=== PATIENT | male | born 1950 | race Caucasian/White ===

== ENCOUNTER 2018-06-10 00:16 | Inpatient (IN) ==
--- NOTE | 2018-06-10 01:01 | XR ---
EXAM DATE: 06/10/2018 12:49 AM EST AGE/SEX: 68 years / Male INDICATIONS: Shortness of breath. CLINICAL DATA: This is the patient's initial encounter. Patient reports that signs and symptoms have been present for 1 day and indicates a pain score of 0/10. MEDICAL/SURGICAL HISTORY: Carcinoma, prostatic. Hypertension. Laryngeal cancer. . Laryngectom y. Port placement. COMPARISON: No prior exams available for comparison. FINDINGS: A single AP view of the chest demonstrates the lungs to be symmetrically aerated without evidence of mass, infiltrate or effusion. The pulmonary nodules seen on the prior PET CT are not discernible on this study. The cardiomediastinal contours are unremarkable. Osseous structures are intact. Right- sided PowerPort. CONCLUSION: Negative examination. Electronically signed by: Greg Carroll MD 06/10/2018 1:00 AM EST
[2018-06-10 01:20] LABS: Eos # (Auto) 0.2 th/mm3 (0.0-0.4); Eos % (Auto) 3.6 % (0.0-4.0); Hematocrit 45.6 % (39.0-51.0); Hemoglobin 15.3 gm/dL (13.0-17.0); Lymph # (Auto) 1.4 th/mm3 (1.0-4.8); Lymph % (Auto) 29.7 % (9.0-44.0); Mean Corpuscular HGB Conc 33.7 % (32.0-36.0); Mean Corpuscular Hemoglobin 36.6 pg (27.0-34.0); Mean Corpuscular Volume 108.8 fL (80.0-100.0); Mean Platelet Volume 7.8 fL (7.0-11.0); Mono # (Auto) 0.6 th/mm3 (0.0-0.9); Neut # (Auto) 2.5 th/mm3 (1.8-7.7); Neut % (Auto) 52.7 % (16.0-70.0); Platelet Count 182 th/mm3 (150-450); Red Blood Count 4.19 mil/mm3 (4.50-5.90); Red Cell Distribution Width 13.6 % (11.6-17.2); White Blood Count 4.7 th/mm3 (4.0-11.0)
[2018-06-10 01:42] LABS: Alanine Aminotransferase 41 U/L (12-78); Albumin 3.7 g/dL (3.4-5.0); Anion Gap 13 meq/L (5-15); Aspartate Aminotransferase 42 U/L (15-37); Blood Urea Nitrogen 12 mg/dL (7-18); Calcium 8.2 mg/dL (8.5-10.1); Chloride 111 meq/L (98-107); Glomerular Filtration Rate 80 mL/min (>89); Glucose,Random 96 mg/dL (74-106); Magnesium 1.8 mg/dL (1.5-2.5); Potassium 3.7 meq/L (3.5-5.1); Sodium 143 meq/L (136-145)
[2018-06-10 01:51] LABS: Alkaline Phosphatase 130 U/L (45-117); Total Protein 7.7 g/dL (6.4-8.2)
[2018-06-10 01:57] LABS: Alcohol 141 mg/dL (0-5)
[2018-06-10 02:09] LABS: ABG Base Excess -3.9 mmol/L (-2-2); ABG PCO2 30 mmHg (38-42); ABG PO2 79 mmHg (61-120)
[2018-06-10] MEDS ORDERED: Sodium Chlor 0.9% Inj 500 ML IV.SIG ONE ×2 (02:10→04:30)
[2018-06-10 03:00] LABS: Bilirubin,Urine Negative (Negative); Clarity,Urine Clear (Clear); Color,Urine Yellow (Yellw/Straw); Glucose,Urine (UA) Negative (Negative); Hyaline Casts,Urine 3 /lpf (0-3); Leukocyte Esterase,Urine Trace (Negative); Mucus,Urine Few /lpf (Occasional); Nitrite,Urine Negative (Negative); Specific Gravity,Urine 1.011 (1.002-1.035); Squamous Epithelial Cell,Urine <1 /hpf (0-5)
[2018-06-10 03:01] LABS: Amphetamine Screen,Urine Neg (Neg); Barbiturate Screen,Urine Neg (Neg); Cannabinoid Screen,Urine Pos (Neg); Cocaine Screen,Urine Neg (Neg)
[2018-06-10 03:02] LABS: Opiate Screen,Urine Neg (Neg)
--- NOTE | 2018-06-10 04:15 | ED ---
HPI General Chief complaint: Psychiatric Symptoms Stated complaint: Psy Eval/VCSO Time Seen by Provider: 06/10/18 00:24 Source: patient Limitations: no limitations History of Present Illness HPI narrative: The patient is a 68 year old male who presents to the [facility] emergency department with a history of reportedly attempting suicide prior to arrival through carbon monoxide exposure. The patient was found by his with his vehicle on in a hose connecting his tailpipe into the vehicle. Police were called and the patient initially tried to flee, however he was quickly found. Patient on arrival reports that he has been depressed for over a year. He reports that he has history of throat cancer and is on chemotherapy. He is under the care of an oncologist reportedly at [facility] in [place]. The patient reports that he was in the vehicle for 2-3 minutes prior to being found. He denies having any headache, nausea, vomiting, or diarrhea. He denies having any chest pain, chest pressure, or shortness of breath. He denies any prior history of being diagnosed with depression. He denies being on any medications for mental health issues. On review of systems otherwise, the patient denies having any known recent fever, congestion, neck pain, abdominal pain, urinary symptoms, or neurologic symptoms. Related Data Home Medications Medication Instructions Recorded Confirmed Erbitux 06/10/18 Previous Rx's Medication Instructions Recorded ciprofloxacin HCl [Cipro] 500 mg PO Q12H #10 tab 06/10/18 Allergies Allergy/AdvReac Type Severity Reaction Status Date / Time No Known Allergies Allergy Verified 06/10/18 00:23 Review of Systems ROS: all other systems reviewed are negative PMFSH Medical History Medical History Cancer (Acute) Hypertension (Acute) Laryngeal squamous cell carcinoma (Acute) Surgical History Surgical History H/O laryngectomy (Acute) Social History Social History Substance History: No History of Abuse Smoking Status: Former smoker How Often Do You Have a Drink Containing Alcohol: 4 or more times a week Recent Travel in [facility] within the Last 8 Weeks: No Recent Out of Country Travel within the Last 8 Weeks: No Immunization History Tetanus Immunization: >5 Years Exam Const General: cooperative, no acute distress and well developed Nutritional Appearance: well nourished Orientation: alert, awake and oriented x3 HENMT Head: normocephalic and atraumatic Nose: no nasal discharge and no epistaxis Mouth: moist mucous membranes Throat: posterior oropharynx normal and uvula midline Eyes Sclera: normal sclerae Pupils: PERRL Neck Neck: no meningeal signs, trachea midline and no JVD Resp Effort & Inspection: no use of accessory muscles Auscultation: clear to auscultation bilaterally Cardio Rate: regular rate Rhythm: regular rhythm Heart Sounds: no murmurs GI Inspection: non-distended Palpation: soft, no hepatosplenomegaly and nontender Back/Spine/Pelvis Back: no CVA tenderness Skin General: dry skin (warm) Neuro General: alert, awake, oriented x3 and other (Grossly nonfocal. The patient is however unable to speak clearly as he has had a laryngectomy.) Motor: strength 5/5 throughout and no movement abnormalities noted Sensory Exam: no sensory deficits noted Extrem General: normal to inspection, no clubbing, no cyanosis and no edema Psych Mood: dysthymic mood Affect: blunted Thought Content: no homicidality and suicidality Judgment: limited Course Initial Documented Vital Signs Temperature 98.0 F 06/10/18 00:24 Pulse Rate 77 06/10/18 00:24 Respiratory Rate 16 06/10/18 00:24 Blood Pressure 165/85 H 06/10/18 00:24 Pulse Oximetry 97 06/10/18 00:24 Last Documented Vital Signs Temperature 98.0 F 06/10/18 00:24 Pulse Rate 71 06/10/18 02:02 Respiratory Rate 16 06/10/18 02:02 Blood Pressure 157/85 H 06/10/18 02:02 Pulse Oximetry 95 06/10/18 02:02 Medical Decision Making [place] Narrative Medical decision making narrative: During the course of the patient's emergency department visit, the patient's history, examination, and differential diagnosis were reviewed with the patient. The patient was placed on a drafter construction with oximetry and frequent blood pressure monitoring. The patient had IV access obtained and blood work sent for analysis. A diagnostic evaluation was started regarding the patient's suicide attempt. An ABG was ordered to evaluate for carbon monoxide toxicity. The patient was initially provided normal saline of 500 mL bolus x1. The patient's diagnostic studies are remarkable for an ABG that shows a pH of 7.44, PCO2 30, PO2 79, bicarb 20, base excess -3.9, carboxyhemoglobin 1.3. The patient's hemoglobin is noted to be 15.3, white blood cell count normal at 4.7, platelets 132 with monocytes 13, chemistries remarkable for chloride 111, CO2 19 , GFR of 80, calcium 8.2, AST 42, alk phos 130, TSH is elevated at 11.5. The patient's urinalysis shows small occult blood trace leukocyte esterase 2 RBCs, 13 WBCs. The patient was given Rocephin 1 g IV. The patient will be treated with antibiotic for UTI. Chest x-ray shows no acute cardiopulmonary disease. The patient has been medically cleared for evaluation the by the psychiatric screener and psychiatrist under [place] act. Regarding the patient's UTI, the patient will be given a prescription for ciprofloxacin to be completed over the next 5 days. Medical Screen Exam Complete: Yes Emergency Medical Condition: Yes Differential Diagnosis Differential Diagnosis: Carbon monoxide toxicity, versus hypoxemia, versus depression with suicidal ideations, versus substance-induced mood disorder Medical Records Medical records reviewed: Yes I reviewed the patient's medical records. Lab Data Lab results reviewed: Yes I reviewed the patient's lab results. Result diagrams: 06/10/18 00:27 06/10/18 00:27 Lab Results 06/10/18 06/10/18 06/10/18 Range/Units 00:27 00:27 00:30 WBC 4.7 (4.0-11.0) th/mm3 RBC 4.19 L (4.50-5.90) mil/mm3 Hgb 15.3 (13.0-17.0) gm/dL Hct 45.6 (39.0-51.0) % MCV 108.8 H (80.0-100.0) fL MCH 36.6 H (27.0-34.0) pg MCHC 33.7 (32.0-36.0) % RDW 13.6 (11.6-17.2) % Plt Count 182 (150-450) th/mm3 MPV 7.8 (7.0-11.0) fL Neut % (Auto) 52.7 (16.0-70.0) % Lymph % (Auto) 29.7 (9.0-44.0) % [place] % (Auto) 13.0 H (0.0-8.0) % Eos % (Auto) 3.6 (0.0-4.0) % Baso % (Auto) 1.0 (0.0-2.0) % Neut # (Auto) 2.5 (1.8-7.7) th/mm3 Lymph # (Auto) 1.4 (1.0-4.8) th/mm3 [place] # (Auto) 0.6 (0.0-0.9) th/mm3 Eos # (Auto) 0.2 (0.0-0.4) th/mm3 Baso # (Auto) 0.0 (0.0-0.2) th/mm3 WBC Differential . Differential Comment Auto diff final Puncture Site Patient Temperature O2 Saturation (90-100) % ABG pH (7.380-7.420) ABG pCO2 (38-42) mmHg ABG pO2 (61-120) mmHg ABG HCO3 (22-26) mmol/L ABG O2 Content (12.0-20.0) Vol % ABG Base Excess (-2-2) mmol/L ABG Methemoglobin (0-2) % Angel Test Hemoglobin (12.0-16.0) G/DL Carboxyhemoglobin (0-4) % Inspired O2 % Critical Value Sodium 143 (136-145) meq/L Potassium 3.7 (3.5-5.1) meq/L Chloride 111 H (98-107) meq/L Carbon Dioxide 19.0 L (21.0-32.0) meq/L Anion Gap 13 (5-15) meq/L BUN 12 (7-18) mg/dL Creatinine 0.94 (0.60-1.30) mg/dL Estimated GFR 80 L (>89) mL/min Random Glucose 96 (74-106) mg/dL Calcium 8.2 L (8.5-10.1) mg/dL Magnesium 1.8 (1.5-2.5) mg/dL Total Bilirubin 0.3 (0.2-1.0) mg/dL AST 42 H (15-37) U/L ALT 41 (12-78) U/L Alkaline Phosphatase 130 H (45-117) U/L Total Protein 7.7 (6.4-8.2) g/dL Albumin 3.7 (3.4-5.0) g/dL TSH 11.500 H (0.358-3.740) uIU/mL Urine Color (Yellw/Straw) Urine Clarity (Clear) Urine pH (5.0-8.5) Ur Specific [place] (1.002-1.035) Urine Protein (Neg-Trace) mg/dL Urine Glucose (UA) (Negative) mg/dL Urine Ketones (Negative) mg/dL Urine Occult Blood (Negative) Urine Nitrate (Negative) Urine Bilirubin (Negative) Urine Urobilinogen (Less than 2) mg/dL Ur Leukocyte Esterase (Negative) Urine RBC (0-3) /hpf Urine WBC (0-5) /hpf Ur Squamous Epith Cells (0-5) /hpf Hyaline Casts (0-3) /lpf Urine Mucus (Occasional) /lpf Micro UA Comment Ur Microscopic Review Urine Culture Comments Salicylates (2.8-20.0) mg/dL Urine Opiates Screen Neg (Neg) Acetaminophen (10.0-30.0) mcg/mL Ur Barbiturates Screen Neg (Neg) Ur Amphetamines Screen Neg (Neg) U Benzodiazepines Scrn Neg (Neg) Urine Cocaine Screen Neg (Neg) U Cannabinoids Screen Pos H (Neg) Serum Alcohol 141 H (0-5) mg/dL 06/10/18 06/10/18 06/10/18 Range/Units 00:30 01:59 03:00 WBC (4.0-11.0) th/mm3 RBC (4.50-5.90) mil/mm3 Hgb (13.0-17.0) gm/dL Hct (39.0-51.0) % MCV (80.0-100.0) fL MCH (27.0-34.0) pg MCHC (32.0-36.0) % RDW (11.6-17.2) % Plt Count (150-450) th/mm3 MPV (7.0-11.0) fL Neut % (Auto) (16.0-70.0) % Lymph % (Auto) (9.0-44.0) % [place] % (Auto) (0.0-8.0) % Eos % (Auto) (0.0-4.0) % Baso % (Auto) (0.0-2.0) % Neut # (Auto) (1.8-7.7) th/mm3 Lymph # (Auto) (1.0-4.8) th/mm3 [place] # (Auto) (0.0-0.9) th/mm3 Eos # (Auto) (0.0-0.4) th/mm3 Baso # (Auto) (0.0-0.2) th/mm3 WBC Differential Differential Comment Puncture Site Right radial Patient Temperature 98.6 O2 Saturation 93 (90-100) % ABG pH 7.44 H (7.380-7.420) ABG pCO2 30 L (38-42) mmHg ABG pO2 79 (61-120) mmHg ABG HCO3 20 L (22-26) mmol/L ABG O2 Content 18.9 (12.0-20.0) Vol % ABG Base Excess -3.9 L (-2-2) mmol/L ABG Methemoglobin 0.7 (0-2) % Angel Test Present Hemoglobin 14.5 (12.0-16.0) G/DL Carboxyhemoglobin 1.3 (0-4) % Inspired O2 21 % Critical Value No Sodium (136-145) meq/L Potassium (3.5-5.1) meq/L Chloride (98-107) meq/L Carbon Dioxide (21.0-32.0) meq/L Anion Gap (5-15) meq/L BUN (7-18) mg/dL Creatinine (0.60-1.30) mg/dL Estimated GFR (>89) mL/min Random Glucose (74-106) mg/dL Calcium (8.5-10.1) mg/dL Magnesium (1.5-2.5) mg/dL Total Bilirubin (0.2-1.0) mg/dL AST (15-37) U/L ALT (12-78) U/L Alkaline Phosphatase (45-117) U/L Total Protein (6.4-8.2) g/dL Albumin (3.4-5.0) g/dL TSH (0.358-3.740) uIU/mL Urine Color Yellow (Yellw/Straw) Urine Clarity Clear (Clear) Urine pH 6.0 (5.0-8.5) Ur Specific [place] 1.011 (1.002-1.035) Urine Protein Negative (Neg-Trace) mg/dL Urine Glucose (UA) Negative (Negative) mg/dL Urine Ketones 20 (Negative) mg/dL Urine Occult Blood Small H (Negative) Urine Nitrate Negative (Negative) Urine Bilirubin Negative (Negative) Urine Urobilinogen Less than 2 (Less than 2) mg/dL Ur Leukocyte Esterase Trace H (Negative) Urine RBC 2 (0-3) /hpf Urine WBC 13 H (0-5) /hpf Ur Squamous Epith Cells <1 (0-5) /hpf Hyaline Casts 3 (0-3) /lpf Urine Mucus Few H (Occasional) /lpf Micro UA Comment Culture indicated Ur Microscopic Review Not Reportable Urine Culture Comments Culture indicated Salicylates (2.8-20.0) mg/dL Urine Opiates Screen (Neg) Acetaminophen Less than 2.0 L (10.0-30.0) mcg/mL Ur Barbiturates Screen (Neg) Ur Amphetamines Screen (Neg) U Benzodiazepines Scrn (Neg) Urine Cocaine Screen (Neg) U Cannabinoids Screen (Neg) Serum Alcohol (0-5) mg/dL 06/10/18 Range/Units 03:00 WBC (4.0-11.0) th/mm3 RBC (4.50-5.90) mil/mm3 Hgb (13.0-17.0) gm/dL Hct (39.0-51.0) % MCV (80.0-100.0) fL MCH (27.0-34.0) pg MCHC (32.0-36.0) % RDW (11.6-17.2) % Plt Count (150-450) th/mm3 MPV (7.0-11.0) fL Neut % (Auto) (16.0-70.0) % Lymph % (Auto) (9.0-44.0) % [place] % (Auto) (0.0-8.0) % Eos % (Auto) (0.0-4.0) % Baso % (Auto) (0.0-2.0) % Neut # (Auto) (1.8-7.7) th/mm3 Lymph # (Auto) (1.0-4.8) th/mm3 [place] # (Auto) (0.0-0.9) th/mm3 Eos # (Auto) (0.0-0.4) th/mm3 Baso # (Auto) (0.0-0.2) th/mm3 WBC Differential Differential Comment Puncture Site Patient Temperature O2 Saturation (90-100) % ABG pH (7.380-7.420) ABG pCO2 (38-42) mmHg ABG pO2 (61-120) mmHg ABG HCO3 (22-26) mmol/L ABG O2 Content (12.0-20.0) Vol % ABG Base Excess (-2-2) mmol/L ABG Methemoglobin (0-2) % Angel Test Hemoglobin (12.0-16.0) G/DL Carboxyhemoglobin (0-4) % Inspired O2 % Critical Value Sodium (136-145) meq/L Potassium (3.5-5.1) meq/L Chloride (98-107) meq/L Carbon Dioxide (21.0-32.0) meq/L Anion Gap (5-15) meq/L BUN (7-18) mg/dL Creatinine (0.60-1.30) mg/dL Estimated GFR (>89) mL/min Random Glucose (74-106) mg/dL Calcium (8.5-10.1) mg/dL Magnesium (1.5-2.5) mg/dL Total Bilirubin (0.2-1.0) mg/dL AST (15-37) U/L ALT (12-78) U/L Alkaline Phosphatase (45-117) U/L Total Protein (6.4-8.2) g/dL Albumin (3.4-5.0) g/dL TSH (0.358-3.740) uIU/mL Urine Color (Yellw/Straw) Urine Clarity (Clear) Urine pH (5.0-8.5) Ur Specific [place] (1.002-1.035) Urine Protein (Neg-Trace) mg/dL Urine Glucose (UA) (Negative) mg/dL Urine Ketones (Negative) mg/dL Urine Occult Blood (Negative) Urine Nitrate (Negative) Urine Bilirubin (Negative) Urine Urobilinogen (Less than 2) mg/dL Ur Leukocyte Esterase (Negative) Urine RBC (0-3) /hpf Urine WBC (0-5) /hpf Ur Squamous Epith Cells (0-5) /hpf Hyaline Casts (0-3) /lpf Urine Mucus (Occasional) /lpf Micro UA Comment Ur Microscopic Review Urine Culture Comments Salicylates Less than 1.7 L (2.8-20.0) mg/dL Urine Opiates Screen (Neg) Acetaminophen (10.0-30.0) mcg/mL Ur Barbiturates Screen (Neg) Ur Amphetamines Screen (Neg) U Benzodiazepines Scrn (Neg) Urine Cocaine Screen (Neg) U Cannabinoids Screen (Neg) Serum Alcohol (0-5) mg/dL Imaging Data Radiologist's impression: Chest X-Ray 06/10/18 00:28 CONCLUSION: Negative examination. Discharge Plan Discharge Disposition Patient Disposition: Sign Out(ED Internal Use Only) Discharge Details Diagnosis: Suicide attempt, UTI (urinary tract infection) Physicians Team ED Provider: Brittni Webb Primary Care Provider: Antonio Link Rxs /Orders / Referrals /Forms Prescriptions: New ciprofloxacin HCl [Cipro] 500 mg tablet 500 mg PO Q12H Qty: 10 RF: 0 No Action Erbitux RF: 0 Discharge Interventions Interventions: Vital Signs Last Done: 06/10/18 02:02 Status ED Status: Medically Cleared
[2018-06-10 05:03] LABS: INR 1.2 Ratio; Prothrombin Time 12.2 sec (9.8-11.6)
[2018-06-10] MEDS ORDERED: LORazepam 1 MG Tablet PO PRN (08:12)
[2018-06-10] MEDS ORDERED: Haloperidol Inj 5 MG/ML Ampul IV.PUSH PRN (08:12)
[2018-06-10] MEDS ORDERED: Aluminum/Magnesium/Simethacone Susp 30 ML UDC PO PRN (08:12)
[2018-06-10] MEDS ORDERED: Bisacodyl 10 MG Supp RECTAL PRN (08:12)
[2018-06-10] MEDS: Senna/Docusate Sodium 8.6/50 MG Tablet PO SCH ×2 (09:04→21:35)
--- NOTE | 2018-06-10 10:53 | P.HPPSY ---
Provisional Diagnosis Admission Date: June 10, 2018 08:12 Competence Certification of Person's Competence To Provide Express and Informed Consent I have personally examined Oj Al, a person being served at [facility] on, June 10, 2018 1019. Express and informed consent means consent voluntarily given in writing, by a competent person, after sufficient explanation and disclosure of the subject matter involved to enable the person to make a knowing and willful decision without any element of force, fraud, deceit, duress, or other form of constraint or coercion. This person is 18 years of age or older, is not now known to be incompetent to consent to treatment with a guardian advocate, and does not have a health care surrogate or proxy currently making medical treatment decisions. I have found this person to be one of the following: [] Competent to provide express and informed consent, as defined above, for voluntary admission to this facility and is competent to provide express and informed consent for treatment. He/she has the consistent capacity to make well reasoned, willful, and knowing decisions concerning his or her medical or mental health treatment. The person fully and consistently understands the purpose of the admission for examination/placement and is fully capable of personally exercising all rights assured [place] Incompetent to provide express and informed consent to voluntary admission, and this is incompetent to provide express and informed consent to treatment. The person must be transferred to involuntary status and a petition for a guardian advocate filed with the Circuit Court. [x] Refusing to provide express and informed consent to voluntary admission but is competent to provide express and informed consent for treatment. The person must be discharged or transferred to involuntary status. Form shall be completed within 24 hours of a person's arrival at the receiving facility and filed in the clinical record of each person: 1. Admitted on a voluntary basis 2. Permitted to provide express and informed consent to his/her own treatment 3. Allowed to transfer from involuntary to voluntary status 4. Prior to permitting a person to consent to his or her own treatment after having been previously found incompetent to consent to treatment. History of Present Illness Capacity: Has capacity History of Present Illness: The patient is a 68 year old man, domiciled with his in [place], father of a 42 year-old daughter, retired, with a psychiatric history of alcohol and cannabis use disorder, but no psychiatric hospitalizations, no previous suicide attempts, the patient has a medical history of laryngeal cancer , he is in chemotherapy at the moment, who presents to the [facility] emergency department with a history of reportedly attempting suicide prior to arrival through carbon monoxide exposure. The patient was found by his with his vehicle on in a hose connecting his tailpipe into the vehicle, a picture of this fact is attached to the paper chart. Police were called and the patient initially tried to flee, however he was quickly found and rescued. Patient on arrival reports that he has been depressed for over a year. He reports that he has history of throat cancer and is on chemotherapy. He is under the care of an oncologist reportedly at [facility] in [place]. The patient reports that he was in the vehicle for 2-3 minutes prior to being found. He denies having any headache, nausea, vomiting, or diarrhea. He denies having any chest pain, chest pressure, or shortness of breath. He denies any prior history of being diagnosed with depression. He denies being on any medications for mental health issues. On review of systems otherwise, the patient denies having any known recent fever, congestion, neck pain, abdominal pain, urinary symptoms, or neurologic symptoms. Positive for UTI treated with cipro 500 mg bid for 10 days. On psychiatric evaluation today the patient is found calm, cooperative, communication is limited due to trach. However communication is effective through writing. Patient reports that he feels much better right now. He says that last night he was very upset with his after an argument. He refuses to elaborate about the substance and source of his argument. He does admit that he was intoxicated with alcohol. He says that he was not thinking right, he does not want to , he wants to fight for his health. He does admit that he has been depressed lately due to his medical problems, he says that he understands that he has a bad prognosis and could be facing a painful . He said that his mood is now 7/10, but yesterday was 2/10. He reports okay sleep, okay appetite, denies suicidal ideation at the moment, denies homicidal ideation, denies visual and auditory hallucinations. Patient is fully oriented x3. No attention deficit, no fluctuation of consciousness. No withdrawal symptoms present. Collateral information form Rashida Al, , was attempted but unfortunately she did not answer the phone at this moment. PPHx: No significant psychiatric history, no psychiatric hospitalizations, no pre-suicide attempt PMHx: Laryngeal cancer Family Hx: No family psychiatric history Substance Hx: He reports the use of alcohol every day, also marijuana every day Social Hx: The patient was born and raised in [place], he losing [place] with his , he has a 42-year-old daughter, retired, highest level of education is college - Inpatient Certification I certify that the inpatient services were ordered in accordance with Medicare regulations governing the order. This includes certification that hospital inpatient services are reasonable and necessary and in the case of services not specified as inpatient-only under 42 CFR 419.22(n), that they are appropriately provided as inpatient services in accordance to with the 2-midnight benchmark under 43 CFR 412.3(e) I certify that inpatient psychiatric hospital services are medically necessary. Evaluation and treatment and/or diagnostic testing are expected to improve the patient's condition. The patient needs on a daily basis, active treatment furnished directly by or requiring the supervision of inpatient psychiatric facility personnel. Estimated Total Length of Stay (Days): 7 Plans for Post Hospital Care: Home Review of Systems All other systems reviewed negative except as stated in HPI Psychiatric: Reports depression, Reports thoughts of hurting/killing yourself PMFSH - History History Provided By: Patient - Medical History Medical History: Medical History (Last Updated 06/10/18 @ 04:58 by Brittni Webb MD) Cancer Hypertension Laryngeal squamous cell carcinoma - Surgical History Surgical History: Surgical History (Last Updated 06/10/18 @ 04:59 by Brittni Webb MD) H/O laryngectomy - Tobacco History Smoking Status: Former smoker - Alcohol History How Often Do You Have a Drink Containing Alcohol: 4 or more times a week - Substance Use History Substance History: Active Abuse - Substance Use Type Alcohol Status: Active - Travel History Recent Travel in the [place] Within the Last 8 Weeks: No Recent Travel Out of the Country Within the Last 8 Weeks: No - Immunization History Tetanus Immunization: >5 Years Medications and Allergies Active Medications: Active Medications Al Hydrox/Mg Hydrox/Simethicone (Mag-Al Plus Susp Liq) 30 ml PO Q6H PRN PRN Reason: DYSPEPSIA Al Hydroxide/Mg Hydroxide (Milk Of Magnesia Liq) 30 ml PO Q12H PRN PRN Reason: Mild Constipation Bisacodyl (Dulcolax Supp) 10 mg RECTAL DAILY PRN PRN Reason: SEVERE CONSITIPATION Ciprofloxacin HCl (Cipro) 500 mg PO Q12HR [facility] Stop: 06/20/18 23:59 Flumazenil (Romazecon Inj) 0.2 mg IV.PUSH Q1M PRN PRN Reason: OVERSEDATION Haloperidol Lactate (Haldol Inj) 1 mg IV.PUSH Q15M PRN PRN Reason: for severe agitation Lactulose (Lactulose Liq) 30 ml PO DAILY PRN PRN Reason: SEVERE CONSITIPATION Lorazepam (Ativan) 1 mg PO Q4H PRN PRN Reason: for CIWA 8-10 Lorazepam (Ativan) 2 mg PO Q2H PRN PRN Reason: for CIWA 11-14 Lorazepam (Ativan Inj) 2 mg IV.PUSH Q2H PRN PRN Reason: for CIWA 11-14 Lorazepam (Ativan Inj) 2 mg IV.PUSH Q1H PRN PRN Reason: for CIWA 15-20 Lorazepam (Ativan Inj) 2 mg IV.PUSH Q15M PRN PRN Reason: for CIWA > 20 Lorazepam (Ativan Inj) 1 mg IV.PUSH Q4H PRN PRN Reason: for CIWA 8-10 Senna/Docusate Sodium (Elisabeth-Colace) 1 tab PO BID [facility] Last Admin: 06/10/18 09:04 Dose: 1 tab Sennosides (Senokot) 17.2 mg PO Q12H PRN PRN Reason: Moderate Constipation Allergies Allergy/AdvReac Type Severity Reaction Status Date / Time No Known Allergies Allergy Verified 06/10/18 00:23 Home Medications Medication Instructions Recorded Confirmed Type Erbitux 06/10/18 History Results - Labs CBC & Chem 7: 06/10/18 00:27 06/10/18 00:27 Labs: Laboratory Results - last 24 hr 06/10/18 06/10/18 06/10/18 00:27 00:27 00:30 WBC 4.7 RBC 4.19 L Hgb 15.3 Hct 45.6 MCV 108.8 H MCH 36.6 H MCHC 33.7 RDW 13.6 Plt Count 182 MPV 7.8 Neut % (Auto) 52.7 Lymph % (Auto) 29.7 [place] % (Auto) 13.0 H Eos % (Auto) 3.6 Baso % (Auto) 1.0 Neut # (Auto) 2.5 Lymph # (Auto) 1.4 [place] # (Auto) 0.6 Eos # (Auto) 0.2 Baso # (Auto) 0.0 WBC Differential . Differential Comment Auto diff final PT INR APTT Puncture Site Patient Temperature O2 Saturation ABG pH ABG pCO2 ABG pO2 ABG HCO3 ABG O2 Content ABG Base Excess ABG Methemoglobin Angel Test Hemoglobin Carboxyhemoglobin Inspired O2 Critical Value Sodium 143 Potassium 3.7 Chloride 111 H Carbon Dioxide 19.0 L Anion Gap 13 BUN 12 Creatinine 0.94 Estimated GFR 80 L Random Glucose 96 Calcium 8.2 L Magnesium 1.8 Total Bilirubin 0.3 AST 42 H ALT 41 Alkaline Phosphatase 130 H Total Protein 7.7 Albumin 3.7 TSH 11.500 H Urine Color Urine Clarity Urine pH Ur Specific Reading Urine Protein Urine Glucose (UA) Urine Ketones Urine Occult Blood Urine Nitrate Urine Bilirubin Urine Urobilinogen Ur Leukocyte Esterase Urine RBC Urine WBC Ur Squamous Epith Cells Hyaline Casts Urine Mucus Micro UA Comment Ur Microscopic Review Urine Culture Comments Salicylates Urine Opiates Screen Neg Acetaminophen Ur Barbiturates Screen Neg Ur Amphetamines Screen Neg U Benzodiazepines Scrn Neg Urine Cocaine Screen Neg U Cannabinoids Screen Pos H Serum Alcohol 141 H 06/10/18 06/10/18 06/10/18 00:30 01:59 03:00 WBC RBC Hgb Hct MCV MCH MCHC RDW Plt Count MPV Neut % (Auto) Lymph % (Auto) [place] % (Auto) Eos % (Auto) Baso % (Auto) Neut # (Auto) Lymph # (Auto) [place] # (Auto) Eos # (Auto) Baso # (Auto) WBC Differential Differential Comment PT INR APTT Puncture Site Right radial Patient Temperature 98.6 O2 Saturation 93 ABG pH 7.44 H ABG pCO2 30 L ABG pO2 79 ABG HCO3 20 L ABG O2 Content 18.9 ABG Base Excess -3.9 L ABG Methemoglobin 0.7 Angel Test Present Hemoglobin 14.5 Carboxyhemoglobin 1.3 Inspired O2 21 Critical Value No Sodium Potassium Chloride Carbon Dioxide Anion Gap BUN Creatinine Estimated GFR Random Glucose Calcium Magnesium Total Bilirubin AST ALT Alkaline Phosphatase Total Protein Albumin TSH Urine Color Yellow Urine Clarity Clear Urine pH 6.0 Ur Specific Reading 1.011 Urine Protein Negative Urine Glucose (UA) Negative Urine Ketones 20 Urine Occult Blood Small H Urine Nitrate Negative Urine Bilirubin Negative Urine Urobilinogen Less than 2 Ur Leukocyte Esterase Trace H Urine RBC 2 Urine WBC 13 H Ur Squamous Epith Cells <1 Hyaline Casts 3 Urine Mucus Few H Micro UA Comment Culture indicated Ur Microscopic Review Not Reportable Urine Culture Comments Culture indicated Salicylates Urine Opiates Screen Acetaminophen Less than 2.0 L Ur Barbiturates Screen Ur Amphetamines Screen U Benzodiazepines Scrn Urine Cocaine Screen U Cannabinoids Screen Serum Alcohol 06/10/18 06/10/18 03:00 03:45 WBC RBC Hgb Hct MCV MCH MCHC RDW Plt Count MPV Neut % (Auto) Lymph % (Auto) [place] % (Auto) Eos % (Auto) Baso % (Auto) Neut # (Auto) Lymph # (Auto) [place] # (Auto) Eos # (Auto) Baso # (Auto) WBC Differential Differential Comment PT 12.2 H INR 1.2 APTT 32.0 H Puncture Site Patient Temperature O2 Saturation ABG pH ABG pCO2 ABG pO2 ABG HCO3 ABG O2 Content ABG Base Excess ABG Methemoglobin Angel Test Hemoglobin Carboxyhemoglobin Inspired O2 Critical Value Sodium Potassium Chloride Carbon Dioxide Anion Gap BUN Creatinine Estimated GFR Random Glucose Calcium Magnesium Total Bilirubin AST ALT Alkaline Phosphatase Total Protein Albumin TSH Urine Color Urine Clarity Urine pH Ur Specific Reading Urine Protein Urine Glucose (UA) Urine Ketones Urine Occult Blood Urine Nitrate Urine Bilirubin Urine Urobilinogen Ur Leukocyte Esterase Urine RBC Urine WBC Ur Squamous Epith Cells Hyaline Casts Urine Mucus Micro UA Comment Ur Microscopic Review Urine Culture Comments Salicylates Less than 1.7 L Urine Opiates Screen Acetaminophen Ur Barbiturates Screen Ur Amphetamines Screen U Benzodiazepines Scrn Urine Cocaine Screen U Cannabinoids Screen Serum Alcohol - Imaging Impressions Chest X-Ray 06/10/18 00:28 CONCLUSION: Negative examination. Exam Vital signs: Vital Signs 06/10/18 00:24 06/10/18 02:02 06/10/18 06:39 Temperature 98.0 F Pulse Rate 77 71 72 Respiratory Rate 16 16 18 Blood Pressure 165/85 H 157/85 H 145/82 H Pulse Oximetry 97 95 97 06/10/18 09:32 Temperature Pulse Rate 82 Respiratory Rate 16 Blood Pressure 143/93 H Pulse Oximetry 96 Intake & Output 06/09/18 06/10/18 06/10/18 18:59 06:59 18:59 Intake Total 1100 / 1100 Balance 1100 / 1100 Weight 79.379 kg Intake: IV 1100 / 1100 NS Inj 500 ML @ Wide Open IV. 1000 / 1000 SIG BOLUS ONE Rx#:[id number] Rocephin Inj 1,000 MG In NS Inj 100 / 100 100 ML @ 200 mls/hr IV.SIG ONCE ONE Rx#:[id number] Narrative: No tremors, no EPS, no psychomotor agitation or retardation, no catatonia, no withdrawal symptoms - Constitutional no acute distress - Routine HEENT Exam Head: Present: normocephalic, atraumatic Eye: Present: EOMI, PERRL ENT: Present: mucous membranes moist Mental Status Examination Appearance: Appropriate Consciousness: Alert Orientation: x4 Motor Activity: Normal gait Speech: Unremarkable Language: Adequate Fund of Knowledge: Adequate Attention and Concentration: Adequate Memory: Unremarkable Mood: Sad Affect: Sad Thought Process & Associations: Intact Thought Content: Appropriate Hallucination Type: None Delusion Type: None Suicidal Ideation: Yes Suicidal Plan: No Suicidal Intention: No Homicidal Ideation: No Homicidal Plan: No Homicidal Intention: No Insight: Poor Judgment: Poor Assessment and Plan - Assessment (1) UTI (urinary tract infection) Code(s): N39.0 - Urinary tract infection, site not specified Status: Acute (2) Adjustment disorder with depressed mood Code(s): F43.21 - Adjustment disorder with depressed mood Status: Acute - Plan Plan: On my psychiatric evaluation today the patient is calm, cooperative, but evidently minimizing recent suicidal attempt, stating that he did not really want to kill himself. The patient does report symptomatology of depression, consisting and sad mood, some level of difficulty sleeping at night, poor appetite, low level of energy, hopelessness, helplessness, in the context of argument with his and also his acute/chronic medical condition. At this moment the patient denies suicidal ideation. He was able to contract for safety in the hospital. He denies previous psychiatric history, no pre-suicide attempts, no previous psychiatric hospitalizations. He does report daily use of alcohol and marijuana, denies previous withdrawal symptoms. This is a patient who is found out was about to commit suicide by carbon monoxide intoxication and for this reason this patient has an elevated risk of danger to self at this moment. No collateral information available at this moment. He is fully oriented x3, no attention deficit, no fluctuation of consciousness. 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 (1) UTI (urinary tract infection) Qualifiers: Urinary tract infection type: acute cystitis Hematuria presence: without hematuria Qualified Code(s): N30.00 - Acute cystitis without hematuria
--- NOTE | 2018-06-10 16:37 | P.CON ---
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 Reportedly, patient attempted to commit suicide through carbon monoxide poisoning. Patient was found by his in the garage sitting in his vehicle that he had connected a hose from the tailpipe extending into the vehicle. There is a picture of the vehicle with the hose attached in the patient's chart. Patient was in the vehicle for approximately 2-3 minutes prior to being found by his . In the ED, an ABG was done revealing ph 7.44, pCO2 30, HCO3 20. CBC was remarkable for elevated MCV of 108.8. Chemistry panel was essentially unremarkable. TSH was elevated 11.5. Patient has since been admitted to inpatient psychiatric unit and hospitalist services have been consulted to assist with ongoing medical care. Patient seen and examined. Patient does not voice any acute medical complaints or concerns. He denies any fever or chills. He denies any dizziness, lightheadedness or vision changes. He denies any numbness or tingling. He denies any weakness. He denies any chest pain or shortness of breath. Denies any nausea, vomiting or abdominal pain. He denies any bowel or bladder difficulties. He was diagnosed with laryngeal cancer June of last year. He has since had a laryngectomy and has undergone 30 radiation treatments. He is currently undergoing chemotherapy treatment with Dr. Denson at [facility] consisting of Erbitux every Saturday and is due to treatment today. In discussion with nursing staff, patient's reports that patient had worsening depression for the past 3-4 months. Review of Systems All other systems reviewed negative except as stated in HPI PMFSH - History History Provided By: Patient, Medical Record - Medical History Medical History: Medical History (Last Updated 06/10/18 @ 16:30 by Nita Trejo) Cancer Dyslipidemia Factor V Leiden History of pneumothorax Hypertension Hypothyroidism Laryngeal squamous cell carcinoma Metastatic cancer to lung Prostate cancer - Surgical History Surgical History: Surgical History (Last Updated 06/10/18 @ 16:20 by Nita Trejo) H/O laryngectomy Status post insertion of percutaneous endoscopic gastrostomy (PEG) tube - Family History Family History: Family History (Last Updated 06/10/18 @ 16:16 by Nita Trejo) Other Family history non-contributory - Social History I have reviewed the patient's Social History: Yes - Tobacco History Tobacco Use In Past 30 Days: No Smoking Status: Former smoker Tobacco Type: Cigarettes (Patient quit smoking 7 years ago, previously smoked a pack a day for 35 years) - Alcohol History How Often Do You Have a Drink Containing Alcohol: 4 or more times a week - Substance Use History Substance History: Active Abuse (Marijuana) - Substance Use Type Alcohol Status: Active - Travel History Recent Travel in the [facility] Within the Last 8 Weeks: No Recent Travel Out of the Country Within the Last 8 Weeks: No - Immunization History Tetanus Immunization: >5 Years Medications and Allergies Active Medications: Active Medications Al Hydrox/Mg Hydrox/Simethicone (Mag-Al Plus Susp Liq) 30 ml PO Q6H PRN PRN Reason: DYSPEPSIA Al Hydroxide/Mg Hydroxide (Milk Of Magnesia Liq) 30 ml PO Q12H PRN PRN Reason: Mild Constipation Bisacodyl (Dulcolax Supp) 10 mg RECTAL DAILY PRN PRN Reason: SEVERE CONSITIPATION Ciprofloxacin HCl (Cipro) 500 mg PO Q12HR WENDY Stop: 06/20/18 23:59 Flumazenil (Romazecon Inj) 0.2 mg IV.PUSH Q1M PRN PRN Reason: OVERSEDATION Haloperidol Lactate (Haldol Inj) 1 mg IV.PUSH Q15M PRN PRN Reason: for severe agitation Lactulose (Lactulose Liq) 30 ml PO DAILY PRN PRN Reason: SEVERE CONSITIPATION Lorazepam (Ativan) 1 mg PO Q4H PRN PRN Reason: for CIWA 8-10 Lorazepam (Ativan) 2 mg PO Q2H PRN PRN Reason: for CIWA 11-14 Lorazepam (Ativan Inj) 2 mg IV.PUSH Q2H PRN PRN Reason: for CIWA 11-14 Lorazepam (Ativan Inj) 2 mg IV.PUSH Q1H PRN PRN Reason: for CIWA 15-20 Lorazepam (Ativan Inj) 2 mg IV.PUSH Q15M PRN PRN Reason: for CIWA > 20 Lorazepam (Ativan Inj) 1 mg IV.PUSH Q4H PRN PRN Reason: for CIWA 8-10 Senna/Docusate Sodium (Elisabeth-Colace) 1 tab PO BID WENDY Last Admin: 06/10/18 09:04 Dose: 1 tab Sennosides (Senokot) 17.2 mg PO Q12H PRN PRN Reason: Moderate Constipation Allergies Allergy/AdvReac Type Severity Reaction Status Date / Time No Known Allergies Allergy Verified 06/10/18 00:23 Home Medications Medication Instructions Recorded Confirmed Type Erbitux 06/10/18 History Prilosec 06/10/18 History albuterol sulfate 06/10/18 History atorvastatin [Lipitor] 10 mg PO DAILY 06/10/18 06/10/18 History cyanocobalamin (vitamin B-12) 1,000 mcg IM QMONTH 06/10/18 06/10/18 History [B-12 Compliance] rivaroxaban [Xarelto] 20 mg PO DAILY 06/10/18 06/10/18 History Physical Exam Vital signs: Vital Signs 06/10/18 00:24 06/10/18 02:02 06/10/18 06:39 Temperature 98.0 F Pulse Rate 77 71 72 Respiratory Rate 16 16 18 Blood Pressure 165/85 H 157/85 H 145/82 H Pulse Oximetry 97 95 97 06/10/18 09:32 Temperature Pulse Rate 82 Respiratory Rate 16 Blood Pressure 143/93 H Pulse Oximetry 96 Intake & Output 06/09/18 06/10/18 06/10/18 18:59 06:59 18:59 Intake Total 1100 / 1100 Balance 1100 / 1100 Weight 79.379 kg Intake: IV 1100 / 1100 NS Inj 500 ML @ Wide Open IV. 1000 / 1000 SIG BOLUS ONE Rx#:[id number] Rocephin Inj 1,000 MG In NS Inj 100 / 100 100 ML @ 200 mls/hr IV.SIG ONCE ONE Rx#:[id number] Narrative: GENERAL: Well-developed well-nourished male patient, no acute distress. Awake and alert. Oriented. Witnessed ambulating around the unit without any difficulty. SKIN: Warm and dry. +port right upper chest. HEAD: Atraumatic. Normocephalic. EYES: Pupils equal and round. No scleral icterus. No injection or drainage. ENT: No nasal bleeding or discharge. Mucous membranes pink and moist. NECK: Trachea midline. +tracheostomy CARDIOVASCULAR: Regular rate and rhythm. RESPIRATORY: No accessory muscle use. Clear to auscultation. Breath sounds equal bilaterally. GASTROINTESTINAL: Abdomen soft, non-tender, nondistended. +BS. MUSCULOSKELETAL: Extremities without clubbing, cyanosis, or edema. No obvious deformities. NEUROLOGICAL: Awake and alert. No obvious cranial nerve deficits. Motor grossly within normal limits. Unable to speak clearly s/p laryngectomy. PSYCHIATRIC: Calm and cooperative. Results - Labs CBC & Chem 7: 06/10/18 00:27 06/11/18 08:23 Labs: Laboratory Results - last 24 hr 06/10/18 06/10/18 06/10/18 00:27 00:27 00:30 WBC 4.7 RBC 4.19 L Hgb 15.3 Hct 45.6 MCV 108.8 H MCH 36.6 H MCHC 33.7 RDW 13.6 Plt Count 182 MPV 7.8 Neut % (Auto) 52.7 Lymph % (Auto) 29.7 [place] % (Auto) 13.0 H Eos % (Auto) 3.6 Baso % (Auto) 1.0 Neut # (Auto) 2.5 Lymph # (Auto) 1.4 [place] # (Auto) 0.6 Eos # (Auto) 0.2 Baso # (Auto) 0.0 WBC Differential . Differential Comment Auto diff final PT INR APTT Puncture Site Patient Temperature O2 Saturation ABG pH ABG pCO2 ABG pO2 ABG HCO3 ABG O2 Content ABG Base Excess ABG Methemoglobin Angel Test Hemoglobin Carboxyhemoglobin Inspired O2 Critical Value Sodium 143 Potassium 3.7 Chloride 111 H Carbon Dioxide 19.0 L Anion Gap 13 BUN 12 Creatinine 0.94 Estimated GFR 80 L Random Glucose 96 Calcium 8.2 L Magnesium 1.8 Total Bilirubin 0.3 AST 42 H ALT 41 Alkaline Phosphatase 130 H Total Protein 7.7 Albumin 3.7 TSH 11.500 H Urine Color Urine Clarity Urine pH Ur Specific [place] Urine Protein Urine Glucose (UA) Urine Ketones Urine Occult Blood Urine Nitrate Urine Bilirubin Urine Urobilinogen Ur Leukocyte Esterase Urine RBC Urine WBC Ur Squamous Epith Cells Hyaline Casts Urine Mucus Micro UA Comment Ur Microscopic Review Urine Culture Comments Salicylates Urine Opiates Screen Neg Acetaminophen Ur Barbiturates Screen Neg Ur Amphetamines Screen Neg U Benzodiazepines Scrn Neg Urine Cocaine Screen Neg U Cannabinoids Screen Pos H Serum Alcohol 141 H 06/10/18 06/10/18 06/10/18 00:30 01:59 03:00 WBC RBC Hgb Hct MCV MCH MCHC RDW Plt Count MPV Neut % (Auto) Lymph % (Auto) [place] % (Auto) Eos % (Auto) Baso % (Auto) Neut # (Auto) Lymph # (Auto) [place] # (Auto) Eos # (Auto) Baso # (Auto) WBC Differential Differential Comment PT INR APTT Puncture Site Right radial Patient Temperature 98.6 O2 Saturation 93 ABG pH 7.44 H ABG pCO2 30 L ABG pO2 79 ABG HCO3 20 L ABG O2 Content 18.9 ABG Base Excess -3.9 L ABG Methemoglobin 0.7 Angel Test Present Hemoglobin 14.5 Carboxyhemoglobin 1.3 Inspired O2 21 Critical Value No Sodium Potassium Chloride Carbon Dioxide Anion Gap BUN Creatinine Estimated GFR Random Glucose Calcium Magnesium Total Bilirubin AST ALT Alkaline Phosphatase Total Protein Albumin TSH Urine Color Yellow Urine Clarity Clear Urine pH 6.0 Ur Specific [place] 1.011 Urine Protein Negative Urine Glucose (UA) Negative Urine Ketones 20 Urine Occult Blood Small H Urine Nitrate Negative Urine Bilirubin Negative Urine Urobilinogen Less than 2 Ur Leukocyte Esterase Trace H Urine RBC 2 Urine WBC 13 H Ur Squamous Epith Cells <1 Hyaline Casts 3 Urine Mucus Few H Micro UA Comment Culture indicated Ur Microscopic Review Not Reportable Urine Culture Comments Culture indicated Salicylates Urine Opiates Screen Acetaminophen Less than 2.0 L Ur Barbiturates Screen Ur Amphetamines Screen U Benzodiazepines Scrn Urine Cocaine Screen U Cannabinoids Screen Serum Alcohol 06/10/18 06/10/18 03:00 03:45 WBC RBC Hgb Hct MCV MCH MCHC RDW Plt Count MPV Neut % (Auto) Lymph % (Auto) [place] % (Auto) Eos % (Auto) Baso % (Auto) Neut # (Auto) Lymph # (Auto) [place] # (Auto) Eos # (Auto) Baso # (Auto) WBC Differential Differential Comment PT 12.2 H INR 1.2 APTT 32.0 H Puncture Site Patient Temperature O2 Saturation ABG pH ABG pCO2 ABG pO2 ABG HCO3 ABG O2 Content ABG Base Excess ABG Methemoglobin Angel Test Hemoglobin Carboxyhemoglobin Inspired O2 Critical Value Sodium Potassium Chloride Carbon Dioxide Anion Gap BUN Creatinine Estimated GFR Random Glucose Calcium Magnesium Total Bilirubin AST ALT Alkaline Phosphatase Total Protein Albumin TSH Urine Color Urine Clarity Urine pH Ur Specific [place] Urine Protein Urine Glucose (UA) Urine Ketones Urine Occult Blood Urine Nitrate Urine Bilirubin Urine Urobilinogen Ur Leukocyte Esterase Urine RBC Urine WBC Ur Squamous Epith Cells Hyaline Casts Urine Mucus Micro UA Comment Ur Microscopic Review Urine Culture Comments Salicylates Less than 1.7 L Urine Opiates Screen Acetaminophen Ur Barbiturates Screen Ur Amphetamines Screen U Benzodiazepines Scrn Urine Cocaine Screen U Cannabinoids Screen Serum Alcohol - Imaging Impressions Chest X-Ray 06/10/18 00:28 CONCLUSION: Negative examination. 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 Depression Suicide attempt via carbon monoxide poisoning Phillips Act -Management per psychiatric team Laryngeal squamous cell carcinoma with metastases to the lungs status post laryngectomy and XRT undergoing chemotherapy treatment Prostate cancer Patient communicates largely by writing -patient states he receives Erbitux infusions every Saturday -Oncology consulted, appreciate assistance. Patient known to Dr. Reddy. Factor V Leiden History of PE 6 years ago on chronic anticoagulation with Xarelto -Continue on Xarelto Hypertension Patient states he is not needed medication in years. Reports blood pressures are normally 120/80 -BP mildly elevated at present, possibly situational -Clonidine as needed with parameters -Continue to monitor BP and will initiate scheduled antihypertensive treatment if indicated Hypothyroidism, suspect post radiation TSH elevated at 11 suspect due to medication noncompliance -We will resume patient's dose of Synthroid once med rec updated Bacteruria, suspected UTI Patient denies any urinary complaints -Suggestive of UTI with small blood, trace leukocytes, 13 white blood cells -Started on Cipro in the ED, continue -Follow-up on final urine culture result Alcohol abuse Patient admits to drinking 4 glasses of wine nightly serum EtOH 141 -[facility] protocol -Monitor for any evidence of withdrawal -Thiamine and folate daily -Discussed cessation Cannabis use UDS positive for cannabis -Patient reports having medical marijuana card DVT prophylaxis -Xarelto Thank you very kindly for this consultation. We will continue to follow patient along with you. Code Status: Full Discussed Condition With: patient, nursing staff
[2018-06-10] MEDS: Ciprofloxacin 500 MG Tablet PO SCH (21:35)
--- NOTE | 2018-06-11 07:58 | P.PN ---
Subjective Interval history: Follow-up on patient with metastatic laryngeal cancer, factor V Leiden, prostate cancer, alcohol abuse. Patient seen and examined. Patient says he is okay. Patient denies being on any thyroid replacement at any time. He reports that he had half of his thyroid excised. He denies any fever or chills. Denies any chest pain or shortness of breath. He denies any nausea, vomiting or abdominal pain. Physical Exam Vital signs: Vital Signs 06/10/18 09:32 06/10/18 18:32 06/10/18 19:00 Temperature 98.1 F 98.1 F Pulse Rate 82 52 L 62 Respiratory Rate 16 16 16 Blood Pressure 143/93 H 125/70 120/79 Pulse Oximetry 96 100 06/11/18 06:00 Temperature 97.6 F Pulse Rate 68 Respiratory Rate 14 Blood Pressure 134/82 Pulse Oximetry 96 Intake & Output 06/10/18 06/11/18 06/11/18 18:59 06:59 18:59 Intake Total 480 / 480 960 / 960 Balance 480 / 480 960 / 960 Weight 70.2 kg Intake: Oral 480 / 480 960 / 960 Other: # Voids 2 1 Weight On Admission 70.2 kg Narrative: GENERAL: Well-developed well-nourished male patient, no acute distress. Awake and alert. Pleasant. SKIN: Warm and dry. +port right upper chest. +torn hangnail right great toe with mild surrounding dried blood and erythema. HEENT: Atraumatic. Normocephalic. Pupils equal and round. No scleral icterus. No injection or drainage. No nasal bleeding or discharge. Mucous membranes pink and moist. NECK: Trachea midline. +tracheostomy CARDIOVASCULAR: Regular rate and rhythm. RESPIRATORY: No accessory muscle use. Clear to auscultation. Breath sounds equal bilaterally. GASTROINTESTINAL: Abdomen soft, non-tender, nondistended. +BS. MUSCULOSKELETAL: Extremities without clubbing, cyanosis, or edema. No obvious deformities. NEUROLOGICAL: Awake and alert. No obvious cranial nerve deficits. Motor grossly within normal limits. Unable to speak clearly s/p laryngectomy. PSYCHIATRIC: Calm and cooperative. 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 Depression Suicide attempt via carbon monoxide poisoning Phillips Act -Management per psychiatric team Laryngeal squamous cell carcinoma with metastases to the lungs status post laryngectomy and XRT undergoing chemotherapy treatment Prostate cancer Patient communicates largely by writing -patient states he receives Erbitux infusions every Saturday -Oncology following, appreciate assistance. Plan to hold chemotherapy while inpatient. Patient to follow-up with his primary oncologist at discharge. -scheduled Duonebs TID Factor V Leiden History of PE 6 years ago on chronic anticoagulation with Xarelto -Continue on Xarelto Hypertension Patient states he is not needed medication in years. Reports blood pressures are normally 120/80 -BP mildly elevated at present, possibly situational -Clonidine as needed with parameters -Continue to monitor BP and will initiate scheduled antihypertensive treatment if indicated -06/11 BP improved Hypothyroidism TSH 11, free T4 0.75 -Patient states his half of his thyroid was removed at the time of his laryngectomy. Patient denies ever being on thyroid replacement in the past. -Possibility that hypothyroidism is contributing to patient's worsening depressive symptoms and recent suicide attempt. Will begin thyroid replacement 50 mcg daily. Patient will need to have close follow-up with PCP and have TSH rechecked in 4-6 weeks as outpatient. Bacteruria, suspected UTI Patient denies any urinary complaints -Suggestive of UTI with small blood, trace leukocytes, 13 white blood cells -Started on Cipro in the ED, continue -Follow-up on final urine culture result -pending Alcohol abuse Patient admits to drinking 4 glasses of wine nightly serum EtOH 141 -[facility] protocol -Monitor for any evidence of withdrawal -no evidence of withdrawal -Thiamine and folate daily -Discussed cessation Cannabis use UDS positive for cannabis -Patient reports having medical marijuana card Right great toe hangnail -soaks in warm epsom salt water followed by application of Neosporin -monitor DVT prophylaxis -Xarelto Code Status: Full Discussed Condition With: patient, nursing staff Discharge Planning: Discharge disposition per primary team
--- NOTE | 2018-06-11 08:35 | MB ---
cc: Ana Aguirre MD DATE: 06/10/2018 CHIEF COMPLAINT: Metastatic squamous cell carcinoma of the head and neck. HISTORY OF PRESENT ILLNESS: Mr. Al is a 68-year-old gentleman with a history of hyperlipidemia, hypertension, hypothyroidism, metastatic squamous cell carcinoma of the head and neck, who is admitted to our hospital with suicide attempt. He is currently being followed by the psychiatric service. He reports that overall his mood has greatly improved since hospital admission. The patient reports that he was initially diagnosed with locally-advanced laryngeal cancer in late 2016 early 2017. He initially underwent laryngectomy and 30 radiation treatments. He reports that approximately spring, his cancer was found to be recurrent and metastatic to the lung. He was treated initially with chemotherapy to include carboplatin, 5-FOLLOWUP, and cetuximab and now receives cetuximab weekly. He reports that he has had a good response of his disease to treatment. REVIEW OF SYSTEMS: As above in the HPI. All others negative. PAST MEDICAL HISTORY: Hyperlipidemia, laryngeal squamous cell carcinoma, hypertension, hypothyroidism. PAST SURGICAL HISTORY: Laryngectomy. FAMILY HISTORY: The patient reports that his son from leukemia. SOCIAL HISTORY: The patient reports he is a former smoker. He has a good support system with his . MEDICATIONS: Include DuoNeb, atorvastatin, Rocephin, ciprofloxacin, clonidine, folic acid, Haldol, Xarelto, Senna, thiamine. PHYSICAL EXAMINATION: GENERAL: Chronically ill-appearing man, in no distress. HEAD: Normocephalic, atraumatic. NECK: With postsurgical changes from laryngectomy. EYES: No scleral icterus. CARDIOVASCULAR: Regular rate, regular. No murmurs. RESPIRATORY: Clear to auscultation bilaterally. ABDOMEN: Soft, nontender, nondistended. Bowel sounds present. EXTREMITIES: No edema. NEUROLOGIC: Grossly nonfocal. PSYCHIATRIC: Appropriate mood and affect. ASSESSMENT AND PLAN: Metastatic squamous cell carcinoma of the head and neck to the lungs, currently receiving treatment with weekly cetuximab with good response of disease. He follows with Dr. Denson at [place]. We will hold chemotherapy while inpatient. Upon hospital discharge, he will continue to follow closely with his primary oncologist. MD DEBBY Wilson/hillary , 07:47 AM , 07:55 AM
[2018-06-11 09:15] LABS: Calcium 8.5 mg/dL (8.5-10.1); Carbon Dioxide 22.4 meq/L (21.0-32.0); Potassium 3.7 meq/L (3.5-5.1)
[2018-06-11 09:54] LABS: Chol/HDL Ratio 1.8 Ratio; Folate 7.6 ng/mL (3.1-17.5); HDL Cholesterol 88.1 mg/dL (40.0-60.0)
[2018-06-11] MEDS: Pantoprazole Sodium 20 MG DR Tablet PO SCH (10:14)
[2018-06-11] MEDS: Folic Acid 1 MG Tablet PO SCH (10:14)
[2018-06-11] MEDS: Ciprofloxacin 500 MG Tablet PO SCH ×2 (10:14→20:40)
[2018-06-11] MEDS: Senna/Docusate Sodium 8.6/50 MG Tablet PO SCH ×2 (10:16→20:38)
--- NOTE | 2018-06-11 10:42 | P.CONPSY ---
Provisional Diagnosis Admission Date: June 10, 2018 08:12 [place] I.: Adjustment disorder with depressed mood, alcohol use disorder History of Present Illness Service: Psychiatry Consult date: 06/11/18 Reason for Consult: Second opinion Primary Care Provider: Antonio Link MD History of Present Illness: Patient 68-year-old man, with prior to be cracked or patient had a suicide attempt , domiciled with , with no formal past psychiatric history, no previous psychiatric admissions, no previous suicide attempt or self injurious behavior, past medical history of back to laryngeal cancer currently in chemotherapy who was brought in under Phillips act for suicide attempt via carbon monoxide poisoning which patient was admitted to the inpatient psychiatry for further evaluation and management. Patient was found and ablated on the unit B, cooperative. Patient stated he is feeling "okay" was able to medicate via writing as patient has tracheostomy. Patient states that he had recently received news from his doctors of requiring another 3 months of chemotherapy which he states was upset and felt frustrated with. He also mentions a recent argument with his on the of suicide and stated that this was not something that was planned and felt that he had "lack of a normal life" referring to previously being able to play golf 5 days a week and now playing less due to his weakness and decreased ability to do so. Patient states that he feels embarrassed a recent suicide attempt and agrees with starting antidepressant treatment. Denies any perceptual service or delusions at this time. Review of Systems All other systems reviewed negative except as stated in HPI PMFSH - History History Provided By: Patient, Medical Record - Medical History Medical History: Medical History (Last Updated 06/10/18 @ 16:30 by Nita Trejo) Cancer Dyslipidemia Factor V Leiden History of pneumothorax Hypertension Hypothyroidism Laryngeal squamous cell carcinoma Metastatic cancer to lung Prostate cancer - Surgical History Surgical History: Surgical History (Last Updated 06/10/18 @ 16:20 by Nita Trejo) H/O laryngectomy Status post insertion of percutaneous endoscopic gastrostomy (PEG) tube - Family History Family History: Family History (Last Updated 06/10/18 @ 16:16 by Nita Trejo) Other Family history non-contributory - Tobacco History Second Hand Smoke Exposure: No Tobacco Use In Past 30 Days: No Smoking Status: Former smoker Tobacco Type: Cigarettes - Alcohol History How Often Do You Have a Drink Containing Alcohol: 4 or more times a week - Substance Use History Substance History: Active Abuse - Substance Use Type Alcohol Status: Active Route Used: By Mouth Frequency: daily Comment: admits to drinking 3-4 glasses of wine daily - Travel History Recent Travel in the [place] Within the Last 8 Weeks: No Recent Travel Out of the Country Within the Last 8 Weeks: No - Immunization History Tetanus Immunization: Unsure Hx Influenza Vaccine This Season: Yes Medications and Allergies Active Medications: Active Medications Al Hydrox/Mg Hydrox/Simethicone (Mag-Al Plus Susp Liq) 30 ml PO Q6H PRN PRN Reason: DYSPEPSIA Al Hydroxide/Mg Hydroxide (Milk Of Magnesia Liq) 30 ml PO Q12H PRN PRN Reason: Mild Constipation Albuterol (Duoneb Neb (Jasbir)) 1 ampul NEB Q8HR ALT NEB JASBIR Atorvastatin Calcium (Lipitor) 10 mg PO HS [facility] Last Admin: 06/10/18 21:35 Dose: 10 mg Bisacodyl (Dulcolax Supp) 10 mg RECTAL DAILY PRN PRN Reason: SEVERE CONSITIPATION Ciprofloxacin HCl (Cipro) 500 mg PO Q12HR JASBIR Stop: 06/20/18 23:59 Last Admin: 06/11/18 10:14 Dose: 500 mg Clonidine HCl (Catapres) 0.1 mg PO Q6H PRN PRN Reason: SBP>160, DBP>90 Flumazenil (Romazecon Inj) 0.2 mg IV.PUSH Q1M PRN PRN Reason: OVERSEDATION Fluoxetine HCl (Prozac) 20 mg PO DAILY [facility] Folic Acid (Folic Acid) 1 mg PO DAILY [facility] [place] Last Admin: 06/11/18 10:14 Dose: 1 mg Haloperidol Lactate (Haldol Inj) 1 mg IV.PUSH Q15M PRN PRN Reason: for severe agitation Lactulose (Lactulose Liq) 30 ml PO DAILY PRN PRN Reason: SEVERE CONSITIPATION Lorazepam (Ativan) 1 mg PO Q4H PRN PRN Reason: for CIWA 8-10 Last Admin: 06/10/18 21:40 Dose: 1 mg Lorazepam (Ativan) 2 mg PO Q2H PRN PRN Reason: for CIWA 11-14 Lorazepam (Ativan Inj) 2 mg IV.PUSH Q2H PRN PRN Reason: for CIWA 11-14 Lorazepam (Ativan Inj) 2 mg IV.PUSH Q1H PRN PRN Reason: for CIWA 15-20 Lorazepam (Ativan Inj) 2 mg IV.PUSH Q15M PRN PRN Reason: for CIWA > 20 Lorazepam (Ativan Inj) 1 mg IV.PUSH Q4H PRN PRN Reason: for CIWA 8-10 Magnesium Sulfate (Epsom Salt) 120 gm TOPICAL DAILY [facility] Neomycin/Polymyxin/Bacitracin (Neosporin Oint) 1 applicatio TOPICAL DAILY [facility] Pantoprazole Sodium (Protonix) 20 mg PO DAILY [facility] Last Admin: 06/11/18 10:14 Dose: 20 mg Rivaroxaban (Xarelto) 20 mg PO DAILY@1700 [facility] Senna/Docusate Sodium (Elisabeth-Colace) 1 tab PO BID [facility] [place] Last Admin: 06/11/18 10:16 Dose: Not Given Sennosides (Senokot) 17.2 mg PO Q12H PRN PRN Reason: Moderate Constipation Thiamine HCl (Vitamin B1) 100 mg PO BID [facility] [place] Last Admin: 06/11/18 10:14 Dose: 100 mg Allergies Allergy/AdvReac Type Severity Reaction Status Date / Time No Known Allergies Allergy Verified 06/10/18 00:23 Home Medications Medication Instructions Recorded Confirmed Type Erbitux 06/10/18 History Prilosec 06/10/18 History albuterol sulfate 06/10/18 History atorvastatin [Lipitor] 10 mg PO DAILY 06/10/18 06/10/18 History cyanocobalamin (vitamin B-12) 1,000 mcg IM QMONTH 06/10/18 06/10/18 History [B-12 Compliance] rivaroxaban [Xarelto] 20 mg PO DAILY 06/10/18 06/10/18 History Exam Vital signs: Vital Signs 06/10/18 18:32 06/10/18 19:00 06/11/18 06:00 Temperature 98.1 F 98.1 F 97.6 F Pulse Rate 52 L 62 68 Respiratory Rate 16 16 14 Blood Pressure 125/70 120/79 134/82 Pulse Oximetry 100 96 Intake & Output 06/10/18 06/11/18 06/11/18 18:59 06:59 18:59 Intake Total 480 / 480 960 / 960 Balance 480 / 480 960 / 960 Weight 70.2 kg Intake: Oral 480 / 480 960 / 960 Other: # Voids 2 1 Weight On Admission 70.2 kg Narrative: Patient not noted to be in acute distress, no gross motor abnormalities, no signs of tremor or EPS, no psychomotor agitation or retardation. - Constitutional no acute distress, cooperative Mental Status Examination Appearance: Appropriate Consciousness: Alert Orientation: x4 Motor Activity: Normal gait Speech: Unremarkable Language: Adequate Fund of Knowledge: Adequate Attention and Concentration: Adequate Memory: Unremarkable Mood: Sad Affect: Sad Thought Process & Associations: Intact Thought Content: Appropriate Hallucination Type: None Delusion Type: None Suicidal Ideation: Yes (Denies at this time but unreliable to contract for safety at this time.) Suicidal Plan: No Suicidal Intention: No Homicidal Ideation: No Homicidal Plan: No Homicidal Intention: No Insight: Fair Judgment: Impulsive Assessment and Plan - Assessment (1) Adjustment disorder with depressed mood Code(s): F43.21 - Adjustment disorder with depressed mood Status: Acute - Plan Plan: I have seen and examined this patient, reviewed the documentation, and I agree and concur with Dr. Cui assessment and plan. I have completed second opinion for the petition for involuntary hospitalization. Consult appreciated. Justification for Continued Inpatient Stay: At risk of further decompensation at lower level care.
[2018-06-11] MEDS: FLUoxetine 20 MG Capsule PO SCH (11:52)
--- NOTE | 2018-06-11 15:16 | ECG ---
Date Performed: 06/11/2018 Time Performed: 11:30:26 PTAGE: 68 years EKG: Sinus rhythm NORMAL ECG NO PREVIOUS TRACING DOCTOR: Sanna Brito Interpretating Date/Time 06/11/2018 15:15:22
[2018-06-11 16:02] LABS: Hemoglobin A1c 5.2 % (4.3-6.0)
[2018-06-11] MEDS: Rivaroxaban 20 MG Tablet PO SCH (17:52)
[2018-06-12] MEDS: Levothyroxine 50 MCG Tablet PO SCH (05:20)
[2018-06-12] MEDS: Ciprofloxacin 500 MG Tablet PO SCH (09:16)
[2018-06-12] MEDS: FLUoxetine 20 MG Capsule PO SCH (09:16)
[2018-06-12] MEDS: Folic Acid 1 MG Tablet PO SCH (09:16)
[2018-06-12] MEDS: Pantoprazole Sodium 20 MG DR Tablet PO SCH (09:17)
[2018-06-12] MEDS: Senna/Docusate Sodium 8.6/50 MG Tablet PO SCH ×2 (09:17→21:05)
--- NOTE | 2018-06-12 10:14 | P.PN ---
Subjective Interval history: Follow-up on patient with metastatic laryngeal cancer, factor V Leiden, prostate cancer, alcohol abuse. Patient seen and examined. Patient denies any acute medical complaints or concerns. He is hopeful he will be discharged soon. DW nursing staff, no adverse events noted overnight. Physical Exam Vital signs: Vital Signs 06/11/18 12:51 06/11/18 16:29 06/11/18 20:03 Temperature 98.3 F Pulse Rate 106 H 59 L 61 Respiratory Rate 15 16 18 Blood Pressure 147/87 H Pulse Oximetry 98 06/12/18 06:00 Temperature 98.2 F Pulse Rate 75 Respiratory Rate 17 Blood Pressure 141/79 H Pulse Oximetry 96 Intake & Output 06/11/18 06/12/18 06/12/18 18:59 06:59 18:59 Intake Total 840 / 840 240 / 240 Balance 840 / 840 240 / 240 Intake: Oral 840 / 840 240 / 240 Other: # Voids 2 2 Narrative: GENERAL: Well-developed well-nourished male patient, no acute distress. Awake and alert. Appears comfortable sitting up in bed reading a book. SKIN: Warm and dry. +port right upper chest. +ingrown toenail right great toe. HEENT: Atraumatic. Normocephalic. Pupils equal and round. No scleral icterus. No injection or drainage. No nasal bleeding or discharge. Mucous membranes pink and moist. NECK: Trachea midline. +tracheostomy CARDIOVASCULAR: Regular rate and rhythm. RESPIRATORY: No accessory muscle use. Clear to auscultation. Breath sounds equal bilaterally. GASTROINTESTINAL: Abdomen soft, non-tender, nondistended. +BS. MUSCULOSKELETAL: Extremities without clubbing, cyanosis, or edema. No obvious deformities. NEUROLOGICAL: Awake and alert. No obvious cranial nerve deficits. Motor grossly within normal limits. Unable to speak clearly s/p laryngectomy. PSYCHIATRIC: Calm and cooperative. Results - Labs CBC & Chem 7: 06/10/18 00:27 06/11/18 08:23 Laboratory Results - last 24 hr 06/10/18 06/11/18 00:30 08:23 Hemoglobin A1c 5.2 Urine Color Yellow Urine Clarity Clear Urine pH 6.0 Ur Specific Sidell 1.011 Urine Protein Negative Urine Glucose (UA) Negative Urine Ketones 20 Urine Occult Blood Small H Urine Nitrate Negative Urine Bilirubin Negative Urine Urobilinogen Less than 2 Ur Leukocyte Esterase Trace H Urine RBC 2 Urine WBC 13 H Ur Squamous Epith Cells <1 Hyaline Casts 3 Urine Mucus Few H Micro UA Comment Culture indicated Urine Culture Comments Culture indicated Microbiology 06/10/18 00:30 Clean Catch Urine Urine Culture - Preliminary Streptococcus species Assessment and Plan - Plan 68yo male with a PMHX significant for 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 Depression Suicide attempt via carbon monoxide poisoning Phillips Act -Management per psychiatric team Laryngeal squamous cell carcinoma with metastases to the lungs status post laryngectomy and XRT undergoing chemotherapy treatment Prostate cancer Patient communicates largely by writing -patient states he receives Erbitux infusions every Saturday -Oncology following, appreciate assistance. Plan to hold chemotherapy while inpatient. Patient to follow-up with his primary oncologist at discharge. -scheduled Duonebs TID Factor V Leiden History of PE 6 years ago on chronic anticoagulation with Xarelto -Continue on Xarelto Hypertension Patient states he is not needed medication in years. Reports blood pressures are normally 120/80 BP acceptable -Clonidine as needed with parameters -Continue to monitor BP and will initiate scheduled antihypertensive treatment if indicated Hypothyroidism TSH 11, free T4 0.75 -Patient states his half of his thyroid was removed at the time of his laryngectomy. Patient denies ever being on thyroid replacement in the past. -Possibility that hypothyroidism is contributing to patient's worsening depressive symptoms and recent suicide attempt. Will begin thyroid replacement 50 mcg daily. Patient will need to have close follow-up with PCP and have TSH rechecked in 4-6 weeks as outpatient. Bacteruria, suspected UTI Patient denies any urinary complaints -Suggestive of UTI with small blood, trace leukocytes, 13 white blood cells -UCX + 25-50,000 streptococcus -Started on Cipro in the ED, will discontinue Alcohol abuse Patient admits to drinking 4 glasses of wine nightly serum EtOH 141 -CIWA protocol -Monitor for any evidence of withdrawal -no evidence of withdrawal -Thiamine and folate daily -Discussed cessation Cannabis use UDS positive for cannabis -Patient reports having medical marijuana card Ingrown right great toenail -soaks in warm epsom salt water followed by application of Neosporin -monitor DVT prophylaxis -Xarelto Patient appears stable from hospitalist standpoint. [facility] will sign off. Please reconsult if needed. Code Status: Full Discussed Condition With: patient, nursing staff Discharge Planning: Discharge disposition per primary team
--- NOTE | 2018-06-12 12:50 | P.PNPSY ---
Subjective Remarks: Patient seen for follow-up, chart reviewed. Discussion with nursing staff reported that patient with no behavioral problems, compliant medications, denying suicide ideations, reading drinkable a visible on the unit. Patient was found sitting in hospital bed eating lunch noted to be calm and cooperative. Patient state he is feeling "good" reported feeling less depressed , denying any suicide ideations and tolerate medications well. Reports having slept well last evening, and his appetite has been "good". Patient states he had been visited by his would not elaborate. Patient tolerating fluoxetine with no adverse drug reactions. Patient states that he would never again attempt to end his life. Review of Systems All other systems reviewed negative except as stated in HPI Mental Status Examination Appearance: Appropriate Consciousness: Alert Orientation: x4 Motor Activity: Normal gait Speech: Unremarkable Language: Adequate Fund of Knowledge: Adequate Attention and Concentration: Adequate Memory: Unremarkable Mood: Sad Affect: Sad Thought Process & Associations: Intact Thought Content: Appropriate Hallucination Type: None Delusion Type: None Suicidal Ideation: Yes (Denies at this time but unreliable to contract for safety at this time.) Suicidal Plan: No Suicidal Intention: No Homicidal Ideation: No Homicidal Plan: No Homicidal Intention: No Insight: Fair Judgment: Impulsive Assessment and Plan - Assessment (1) Adjustment disorder with depressed mood Code(s): F43.21 - Adjustment disorder with depressed mood Status: Acute - Plan Plan: Patient at this time tolerating medications well, reporting feeling less depressed denying suicide ideations. Patient continues to be noted to be somewhat guarded. We will continue current treatment. Continue to monitor with behavior. Discharge planning in progress. Justification for Continued Inpatient Stay: At risk of further decompensation at lower level care.
[2018-06-12] MEDS: Rivaroxaban 20 MG Tablet PO SCH (16:43)
[2018-06-13] MEDS: Levothyroxine 50 MCG Tablet PO SCH (06:18)
[2018-06-13] MEDS: Senna/Docusate Sodium 8.6/50 MG Tablet PO SCH ×2 (09:03→21:18)
[2018-06-13] MEDS: Pantoprazole Sodium 20 MG DR Tablet PO SCH (09:03)
[2018-06-13] MEDS: FLUoxetine 20 MG Capsule PO SCH (09:03)
[2018-06-13] MEDS: Folic Acid 1 MG Tablet PO SCH (09:03)
--- NOTE | 2018-06-13 09:45 | P.PNPSY ---
Subjective Remarks: Patient seen for follow-up, chart reviewed. Discussion with nursing staff reported that patient eating, attending ADLs, denying suicidal ideation and ablated on the unit noted to be calm and cooperative. Patient states that he is sleeping well, mood has been "good" reporting feeling less depressed today denying any suicide ideations at this time. Patient states he is looking forward to getting back to his life and reflects that his suicide attempt was "stupid and impulsive". He states he wants to live for his , family and "life in general". Collateral admission patient's reported that continues to be concern for patient safety although patient reports he has had good visits with his yesterday. Review of Systems All other systems reviewed negative except as stated in HPI Mental Status Examination Appearance: Appropriate Consciousness: Alert Orientation: x4 Motor Activity: Normal gait Speech: Unremarkable Language: Adequate Fund of Knowledge: Adequate Attention and Concentration: Adequate Memory: Unremarkable Mood: Good Affect: Sad (lessening, more reactive affect) Thought Process & Associations: Intact Thought Content: Appropriate Hallucination Type: None Delusion Type: None Suicidal Ideation: Yes (Denies at this time but unreliable to contract for safety at this time.) Suicidal Plan: No Suicidal Intention: No Homicidal Ideation: No Homicidal Plan: No Homicidal Intention: No Insight: Fair Judgment: Impulsive Assessment and Plan - Assessment (1) Adjustment disorder with depressed mood Code(s): F43.21 - Adjustment disorder with depressed mood Status: Acute - Plan Plan: Patient this time noted to have more reactive affect, reports decreased depressed mood, denies any suicide ideations today. Patient tolerating medications well. Has been seeing more visible on the unit. Patient also noted to be more future oriented now. We will continue current treatment. Continue monitor mood and behavior. If patient continues to improve likely discharge in 1-2 days. Discharge planning in progress. Justification for Continued Inpatient Stay: At risk of further decompensation at lower level care.
[2018-06-13] MEDS: Rivaroxaban 20 MG Tablet PO SCH (16:34)
[2018-06-14] MEDS: Senna/Docusate Sodium 8.6/50 MG Tablet PO SCH ×3 (05:30→20:48)
[2018-06-14] MEDS: Levothyroxine 50 MCG Tablet PO SCH (06:26)
[2018-06-14] MEDS: FLUoxetine 20 MG Capsule PO SCH (08:30)
[2018-06-14] MEDS: Pantoprazole Sodium 20 MG DR Tablet PO SCH (08:30)
[2018-06-14] MEDS: Folic Acid 1 MG Tablet PO SCH (08:30)
--- NOTE | 2018-06-14 13:30 | P.PNPSY ---
Subjective Remarks: Pt seen and discussed with staff. He has been cooperative with care and compliant with medications. He has been withdrawn and staying in room. No SI/HI Mental Status Examination Appearance: Appropriate Consciousness: Alert Orientation: x4 Motor Activity: Normal gait Speech: Unremarkable Language: Adequate Fund of Knowledge: Adequate Attention and Concentration: Adequate Memory: Unremarkable Mood: Sad Affect: Sad (lessening, more reactive affect) Thought Process & Associations: Intact Thought Content: Appropriate Hallucination Type: None Delusion Type: None Suicidal Ideation: Yes (Denies at this time but unreliable to contract for safety at this time.) Suicidal Plan: No Suicidal Intention: No Homicidal Ideation: No Homicidal Plan: No Homicidal Intention: No Insight: Fair Judgment: Impulsive Assessment and Plan - Assessment (1) Adjustment disorder with depressed mood Code(s): F43.21 - Adjustment disorder with depressed mood Status: Acute - Plan Plan: Pt improving. Continue current tx plan Justification for Continued Inpatient Stay: risk of decompensation
[2018-06-14] MEDS: Rivaroxaban 20 MG Tablet PO SCH (16:38)
[2018-06-15] MEDS: Levothyroxine 50 MCG Tablet PO SCH (05:54)
[2018-06-15] MEDS: Senna/Docusate Sodium 8.6/50 MG Tablet PO SCH ×2 (08:52→21:11)
[2018-06-15] MEDS: Folic Acid 1 MG Tablet PO SCH (08:52)
[2018-06-15] MEDS: Pantoprazole Sodium 20 MG DR Tablet PO SCH (08:52)
[2018-06-15] MEDS: FLUoxetine 20 MG Capsule PO SCH (08:52)
--- NOTE | 2018-06-15 11:59 | P.PNPSY ---
Subjective Remarks: Reviewed electronic medical record and discussed with nursing staff. Rounded with RA[place]L [place]. Patient is in the common area. Mood is positive and he is preoccupied with discharge and going home. He denies SI/HI. States that he is feeling alot better. Cooperative and compliant. Review of Systems All other systems reviewed negative except as stated in HPI Comments: Trach. Patient has a cap so he is able to speak with the trach. Mental Status Examination Appearance: Appropriate Consciousness: Alert Orientation: x4 Motor Activity: Normal gait Speech: Unremarkable Language: Adequate Fund of Knowledge: Adequate Attention and Concentration: Adequate Memory: Unremarkable Mood: Sad Affect: Sad (lessening, more reactive affect) Thought Process & Associations: Intact Thought Content: Appropriate Hallucination Type: None Delusion Type: None Suicidal Ideation: No Suicidal Plan: No Suicidal Intention: No Homicidal Ideation: No Homicidal Plan: No Homicidal Intention: No Insight: Fair Judgment: Impulsive Assessment and Plan - Assessment (1) Suicide attempt Code(s): T14.91XA - Suicide attempt, initial encounter Status: Acute (2) Adjustment disorder with depressed mood Code(s): F43.21 - Adjustment disorder with depressed mood Status: Acute - Plan Plan: Pt improving. Continue current tx plan Justification for Continued Inpatient Stay: Moving patient to a less restrictive environment may result in his decompensation.
[2018-06-15] MEDS: Rivaroxaban 20 MG Tablet PO SCH (17:28)
[2018-06-16] MEDS: Levothyroxine 50 MCG Tablet PO SCH (06:01)
[2018-06-16] MEDS: Pantoprazole Sodium 20 MG DR Tablet PO SCH (08:42)
[2018-06-16] MEDS: FLUoxetine 20 MG Capsule PO SCH (08:43)
[2018-06-16] MEDS: Senna/Docusate Sodium 8.6/50 MG Tablet PO SCH ×2 (08:43→08:45)
[2018-06-16] MEDS: Folic Acid 1 MG Tablet PO SCH (08:43)
--- NOTE | 2018-06-16 14:27 | P.DSPSY ---
Psychiatry Discharge Summary Inpatient Psychiatric care?: Yes Advance Directives: Yes Reason for Unknown:: Other Other Reason for Unknown: to bring in on next visit Mental Health Advance Directive: No Health Care Proxy: No - Admission Admission Date: June 10, 2018 08:12 - Admission Diagnosis (1) Adjustment disorder with depressed mood Code(s): F43.21 - Adjustment disorder with depressed mood Brief History: The patient is a 68 year old man, domiciled with his in [place], father of a 42 year-old daughter, retired, with a psychiatric history of alcohol and cannabis use disorder, but no psychiatric hospitalizations, no previous suicide attempts, the patient has a medical history of laryngeal cancer , he is in chemotherapy at the moment, who presents to the [facility] emergency department with a history of reportedly attempting suicide prior to arrival through carbon monoxide exposure. The patient was found by his with his vehicle on in a hose connecting his tailpipe into the vehicle, a picture of this fact is attached to the paper chart. Police were called and the patient initially tried to flee, however he was quickly found and rescued. Patient on arrival reports that he has been depressed for over a year. He reports that he has history of throat cancer and is on chemotherapy. He is under the care of an oncologist reportedly at [facility] in [place]. The patient reports that he was in the vehicle for 2-3 minutes prior to being found. He denies having any headache, nausea, vomiting, or diarrhea. He denies having any chest pain, chest pressure, or shortness of breath. He denies any prior history of being diagnosed with depression. He denies being on any medications for mental health issues. On review of systems otherwise, the patient denies having any known recent fever, congestion, neck pain, abdominal pain, urinary symptoms, or neurologic symptoms. Positive for UTI treated with cipro 500 mg bid for 10 days. On psychiatric evaluation today the patient is found calm, cooperative, communication is limited due to trach. However communication is effective through writing. Patient reports that he feels much better right now. He says that last night he was very upset with his after an argument. He refuses to elaborate about the substance and source of his argument. He does admit that he was intoxicated with alcohol. He says that he was not thinking right, he does not want to , he wants to fight for his health. He does admit that he has been depressed lately due to his medical problems, he says that he understands that he has a bad prognosis and could be facing a painful . He said that his mood is now 7/10, but yesterday was 2/10. He reports okay sleep, okay appetite, denies suicidal ideation at the moment, denies homicidal ideation, denies visual and auditory hallucinations. Patient is fully oriented x3. No attention deficit, no fluctuation of consciousness. No withdrawal symptoms present. Collateral information form Rashida Al, , was attempted but unfortunately she did not answer the phone at this moment. PPHx: No significant psychiatric history, no psychiatric hospitalizations, no pre-suicide attempt PMHx: Laryngeal cancer Family Hx: No family psychiatric history Substance Hx: He reports the use of alcohol every day, also marijuana every day Social Hx: The patient was born and raised in [place], he losing [place] with his , he has a 42-year-old daughter, retired, highest level of education is college Tobacco Use In Past 30 Days: No How Often Do You Have a Drink Containing Alcohol: 4 or more times a week Hospital Course: Patient 68-year-old man, with prior to be cracked or patient had a suicide attempt , domiciled with , with no formal past psychiatric history, no previous psychiatric admissions, no previous suicide attempt or self injurious behavior, past medical history of back to laryngeal cancer currently in chemotherapy who was brought in under [facility] for suicide attempt via carbon monoxide poisoning which patient was admitted to the inpatient psychiatry for further evaluation and management. Patient was admitted to a locked, inpatient psychiatric unit. Appropriate precautions were in place throughout patient's hospital stay. Patient was seen and examined on the unit by psychiatry. Psychotropic medications were started and adjusted. There was no evidence of any further suicidality or homicidality on the inpatient unit. Patient's mood improved with the benefit of psychopharmacological treatment and had no behavioral disturbance since admission. Patient was noted to have reached stable mood, noted to participate and engage in treatment and interact with staff adequately. Patient noted to be future oriented with plans to continue treatment and outpatient follow-up appointments for continuity of care. Counselor has arranged discharge plan which patient would be discharged back to his residence with his , continue with chemotherapy and outpatient follow up. On the day of discharge: Patient seen and examined; chart reviewed. Case discussed with nurse and counselor. No behavioral issues overnight. On my examination today, the patient denies any suicidal homicidal ideation, intent or plan on direct questioning and contracts for safety. Patient denies any perceptional disturbances and no delusional material verbalized today. Patient denies any side effects from medication and has understanding of medication regimen and education. No physical complaints. Suicide and violence risk assessment on day of discharge both suggest lower imminent risk, and the patient's level of function is adequate for plan level of outpatient care. Patient has maximized benefit from this inpatient psychiatric hospital stay and will be discharged with discharge plan as arranged by counselor. Patient advised to return to psychiatric emergency room for any concerning psychiatric symptoms. Patient agrees with plan. - Discharge Discharge Date: 06/16/18 - Discharge Diagnosis (1) Adjustment disorder with depressed mood Code(s): F43.21 - Adjustment disorder with depressed mood Status: Acute Discharge Disposition: Home - Discharge Instructions Discharge Diet: Heart Healthy Diet Activities You Can Perform: Weight Bearing As Tolerat - Discharge Time > 30 minutes Mental Status Examination Appearance: Appropriate Consciousness: Alert Orientation: x4 Motor Activity: Normal gait Speech: Unremarkable Language: Adequate Fund of Knowledge: Adequate Attention and Concentration: Adequate Memory: Unremarkable Mood: Appropriate Affect: Appropriate Thought Process & Associations: Intact Thought Content: Appropriate Hallucination Type: None Delusion Type: None Suicidal Ideation: No Suicidal Plan: No Suicidal Intention: No Homicidal Ideation: No Homicidal Plan: No Homicidal Intention: No Insight: Adequate Judgment: Adequate Discharge/Advance Care Plan - Results Vital Signs: Last Vital Signs Temp 98.4 F 06/16/18 05:04 Pulse 70 06/16/18 05:04 Resp 16 06/16/18 05:04 BP 126/78 06/16/18 05:04 Pulse Ox 96 06/16/18 05:04 Lab Results: Laboratory Results Hemoglobin A1c 5.2 % (4.3-6.0) 06/11/18 08:23 Triglycerides 115 mg/dL (42-150) 06/11/18 08:23 Cholesterol 159 mg/dL (120-200) 06/11/18 08:23 LDL Cholesterol, Calc 48 mg/dL (0-99) 06/11/18 08:23 HDL Cholesterol 88.1 mg/dL (40.0-60.0) H 12/05/18 08:23 TSH 11.500 uIU/mL (0.358-3.740) H 06/10/18 00:27 Free T4 0.75 ng/dL (0.76-1.46) L 06/10/18 03:00 Urine Culture Comments Culture indicated 06/10/18 00:30 Summary of Procedures: none Imaging: ITS Impressions Chest X-Ray 06/10/18 00:28 CONCLUSION: Negative examination. Pending Results: None - Medications Number of antipsychotic medications at discharge: 0 - Discharge Care Plan Goals to Promote Your Health: * To prevent worsening of your condition and complications * To maintain your health at the optimal level Directions to Meet Your Goals: Take your medications as prescribed Follow your dietary instruction Follow activity as directed Keep your appointments as scheduled Take your immunizations and boosters as scheduled If your symptoms worsen call your PCP, if no PCP go to Urgent Care Center or Emergency Room For 28/01 questions related to your inpatient stay or results of tests pending at discharge, please contact Dr. Gerry Harrison MD at Smoking is Dangerous to Your Health. Avoid second hand smoking
== END 2018-06-16 15:15 | disposition home or self-care (01) ==
LOC: NEPC 00:16 → NEDA 08:12 → H4EA 10:15 → H260 06-13 16:45
PROVIDERS: ADMIT Student in an Organized Health Care Education/Training Program; ATTEND Student in an Organized Health Care Education/Training Program